=== PATIENT | female | born 1960 | race Caucasian/White ===

== ENCOUNTER 2021-02-09 13:46 | Emergency (ER) | payer BC ==
[~2021-02-09] VITALS: Ht 160 cm; Wt 63.0 kg
--- NOTE | 2021-02-09 14:44 | NUR ---
pt has been evaluated by provider, 11 blade and 4x4s at bedside
[2021-02-09] MEDS ORDERED: HYDROcodone/acetaminophen 5mg/325mg tablet PO ONE (14:50)
[2021-02-09] MEDS ORDERED: ondansetron 4mg rapidly disintigrating tab PO ONE (14:50)
[2021-02-09] MEDS ORDERED: CLIN300C70 PO (15:26)
[2021-02-09] MEDS ORDERED: METR-159 PO (15:26)
[2021-02-09] MEDS ORDERED: HYDR-3965 PO (15:26)
[2021-02-09] MEDS ORDERED: ONDA4TAB6 PO (15:26)
[2021-02-09 15:45] VITALS: BP 132/65
== END 2021-02-09 15:40 | disposition home or self-care (01) ==
LOC: ER 13:47
DX: K04.7 Periapical abscess without sinus (principal); E05.00 Thyrotoxicosis with diffuse goiter without thyrotoxic crisis or storm; Z88.0 Allergy status to penicillin; Z79.2 Long term (current) use of antibiotics; Z79.899 Other long term (current) drug therapy
CPT/HCPCS: 64400; 99283; 99284